=== PATIENT | female | born 1995 | race Caucasian/White ===

== ENCOUNTER 2018-11-17 20:55 | Emergency (ER) | payer MEDICAID ==
[~2018-11-17] VITALS: Ht 124.5 cm; Wt 65.8 kg
[2018-11-17 20:59] VITALS: Ht 124.5 cm; Wt 65.8 kg
[2018-11-17 21:32] VITALS: BP 118/81
== END 2018-11-17 21:32 | disposition home or self-care (01) ==
LOC: ED 20:55
DX: R21 Rash and other nonspecific skin eruption (principal)